=== PATIENT | female | born 1955 | race Caucasian/White ===

== ENCOUNTER 2017-12-03 10:45 | Emergency (ER) | payer OTHER ==
[2017-12-03] MEDS ORDERED: ASPIRIN 81 MG PO STA (10:48)
[2017-12-03] MEDS ORDERED: SODIUM CHLORIDE 0.9% 1,000 ML IV STA (10:48)
--- NOTE | 2017-12-03 10:56 | ED ---
Arrhythmia/Palpitations HPI - General Stated Complaint: Cardiac problems Time Seen by Provider: 12/03/17 10:45 Source: patient, EMS, RN notes reviewed Mode of arrival: EMS - History of Present Illness Initial Comments: This is a 62-year-old female who was brought in by EMS for evaluation for palpitations tachycardia. She states she's been having trouble since being started on hydralazine for her blood pressure. She took some this morning started experiencing tachycardia palpitations feeling tired and weak short of breath some left-sided chest pain. She was noted have blood pressure to tendon 220/90-100 upon arrival after 150 mL of fluids was 166/110. Patient was noted per paramedics be very anxious. MD Complaint: rapid heart beat, palpitations - Related Data Home Medications Medication Instructions Recorded Confirmed Acetaminophen/Diphenhydramine 1 tab PO HS PRN 09/27/15 12/03/17 [Tylenol PM 500-25mg] Aspirin EC [Ecotrin] 81 mg PO DAILY 09/27/15 12/03/17 Losartan [Cozaar] 50 mg PO DAILY 09/27/15 12/03/17 FLUoxetine HCL [PROzac] 10 mg PO DAILY 12/03/17 12/03/17 Levothyroxine Sodium [Synthroid] 50 mcg PO DAILY 12/03/17 12/03/17 hydrALAZINE HCL [Apresoline] 50 mg PO BID 12/03/17 12/03/17 Previous Rx's Medication Instructions Recorded Atenolol 25 mg PO DAILY #14 tablet 12/03/17 Furosemide [Lasix] 20 mg PO DAILY #7 tab 12/03/17 Allergies Allergy/AdvReac Type Severity Reaction Status Date / Time nifedipine Allergy Rapid Verified 12/03/17 11:25 Heart Rate Sulfa (Sulfonamide Allergy Rash/Hives Verified 09/27/15 01:29 Antibiotics) Review of Systems ROS Statement: Those systems with pertinent positive or pertinent negative responses have been documented in the HPI. ROS Other: All systems not noted in ROS Statement are negative. Past Medical History Past Medical History: Chest Pain / Angina, Hyperlipidemia, Hypertension, Thyroid Disorder Additional Past Medical History / Comment(s): Fractured clavicle left History of Any Multi-Drug Resistant Organisms: None Reported Past Surgical History: Tubal Ligation Additional Past Surgical History / Comment(s): HEART ABLATION, Past Psychological History: No Psychological Hx Reported Smoking Status: Current every day smoker Past Alcohol Use History: None Reported Past Drug Use History: None Reported General Exam - General Exam Comments Initial Comments: This is a well-developed well-nourished awake alert anxious appearing female General appearance: alert, in no apparent distress, anxious Head exam: Present: atraumatic, normocephalic, normal inspection Eye exam: Present: normal appearance, PERRL, EOMI, other (Patient was tearful) ENT exam: Present: normal exam, mucous membranes moist Neck exam: Present: normal inspection. Absent: tenderness, meningismus, lymphadenopathy Respiratory exam: Present: normal lung sounds bilaterally, chest wall tenderness (Tennis palpation over left costochondral margin). Absent: respiratory distress, wheezes, rales, rhonchi, stridor Cardiovascular Exam: Present: regular rate, normal rhythm, normal heart sounds. Absent: systolic murmur, diastolic murmur, rubs, gallop, clicks GI/Abdominal exam: Present: soft, normal bowel sounds. Absent: distended, tenderness, guarding, rebound, rigid Extremities exam: Present: normal inspection, full ROM, normal capillary refill. Absent: tenderness, pedal edema, joint swelling, calf tenderness Back exam: Present: normal inspection Neurological exam: Present: alert, oriented X3, CN II-XII intact Psychiatric exam: Present: normal affect, anxious Skin exam: Present: warm, dry, intact, normal color. Absent: rash Course Vital Signs 12/03/17 12/03/17 12/03/17 11:06 11:32 12:58 Temperature 97.8 F Pulse Rate 81 80 84 Respiratory 16 18 18 Rate Blood Pressure 225/119 188/96 160/89 O2 Sat by Pulse 98 98 95 Oximetry EKG Findings - EKG Results: EKG: interpreted by CHRISTA SHIN, sinus rhythm, normal axis, normal QRS, normal ST/ T, no acute changes (EKG shows normal sinus rhythm of 85. We'll 134 QRS duration 82 QT since QTC 392/466 this appears be a normal EKG.) Medical Decision Making - Medical Decision Making I did discuss findings with patient family members patient will be discharged on a dose of atenolol which she's been on before without any difficulty and appears be having problems with the hydralazine. She does have an appointment to follow-up with her doctor next week she is a follow-up with her doctor return when necessary she has are running high potassium lately this is not new for her. - Lab Data Result diagrams: 12/03/17 10:55 12/03/17 10:55 Lab Results 12/03/17 12/03/17 12/03/17 Range/Units 10:55 10:55 10:55 WBC 8.4 (3.8-10.6) k/uL RBC 5.19 (3.80-5.40) m/uL Hgb 16.3 H (11.4-16.0) gm/dL Hct 49.0 H (34.0-46.0) % MCV 94.4 (80.0-100.0) fL MCH 31.4 (25.0-35.0) pg MCHC 33.2 (31.0-37.0) g/dL RDW 12.9 (11.5-15.5) % Plt Count 220 (150-450) k/uL Neutrophils % 69 % Lymphocytes % 21 % Monocytes % 7 % Eosinophils % 1 % Basophils % 1 % Neutrophils # 5.8 (1.3-7.7) k/uL Lymphocytes # 1.7 (1.0-4.8) k/uL Monocytes # 0.6 (0-1.0) k/uL Eosinophils # 0.1 (0-0.7) k/uL Basophils # 0.1 (0-0.2) k/uL PT (9.0-12.0) sec INR (<1.2) APTT (22.0-30.0) sec D-Dimer (<0.60) mg/L FEU Sodium 142 (137-145) mmol/L Potassium 5.8 H (3.5-5.1) mmol/L Chloride 109 H (98-107) mmol/L Carbon Dioxide 20 L (22-30) mmol/L Anion Gap 13 mmol/L BUN 20 H (7-17) mg/dL Creatinine 0.98 (0.52-1.04) mg/dL Est GFR (CKD-EPI)AfAm 72 (>60 ml/min/1.73 sqM) Est GFR (CKD-EPI)NonAf 62 (>60 ml/min/1.73 sqM) Glucose 119 H (74-99) mg/dL Calcium 9.8 (8.4-10.2) mg/dL Magnesium 1.8 (1.6-2.3) mg/dL Total Bilirubin 1.1 (0.2-1.3) mg/dL AST 50 H (14-36) U/L ALT 10 (9-52) U/L Alkaline Phosphatase 100 (38-126) U/L Total Creatine Kinase 182 H (30-135) U/L CK-MB (CK-2) 2.3 (0.0-2.4) ng/mL CK-MB (CK-2) Rel Index 1.3 Troponin I 0.014 (0.000-0.034) ng/mL Total Protein 8.3 H (6.3-8.2) g/dL Albumin 4.7 (3.5-5.0) g/dL Amylase (30-110) U/L Lipase (23-300) U/L TSH 2.700 (0.465-4.680) mIU/L Urine Color Urine Appearance (Clear) Urine pH (5.0-8.0) Ur Specific [place] (1.001-1.035) Urine Protein (Negative) Urine Glucose (UA) (Negative) Urine Ketones (Negative) Urine Blood (Negative) Urine Nitrite (Negative) Urine Bilirubin (Negative) Urine Urobilinogen (<2.0) mg/dL Ur Leukocyte Esterase (Negative) 12/03/17 12/03/17 12/03/17 Range/Units 10:55 10:55 13:02 WBC (3.8-10.6) k/uL RBC (3.80-5.40) m/uL Hgb (11.4-16.0) gm/dL Hct (34.0-46.0) % MCV (80.0-100.0) fL MCH (25.0-35.0) pg MCHC (31.0-37.0) g/dL RDW (11.5-15.5) % Plt Count (150-450) k/uL Neutrophils % % Lymphocytes % % Monocytes % % Eosinophils % % Basophils % % Neutrophils # (1.3-7.7) k/uL Lymphocytes # (1.0-4.8) k/uL Monocytes # (0-1.0) k/uL Eosinophils # (0-0.7) k/uL Basophils # (0-0.2) k/uL PT 9.5 (9.0-12.0) sec INR 0.9 (<1.2) APTT 22.6 (22.0-30.0) sec D-Dimer 0.39 (<0.60) mg/L FEU Sodium (137-145) mmol/L Potassium (3.5-5.1) mmol/L Chloride (98-107) mmol/L Carbon Dioxide (22-30) mmol/L Anion Gap mmol/L BUN (7-17) mg/dL Creatinine (0.52-1.04) mg/dL Est GFR (CKD-EPI)AfAm (>60 ml/min/1.73 sqM) Est GFR (CKD-EPI)NonAf (>60 ml/min/1.73 sqM) Glucose (74-99) mg/dL Calcium (8.4-10.2) mg/dL Magnesium (1.6-2.3) mg/dL Total Bilirubin (0.2-1.3) mg/dL AST (14-36) U/L ALT (9-52) U/L Alkaline Phosphatase (38-126) U/L Total Creatine Kinase (30-135) U/L CK-MB (CK-2) (0.0-2.4) ng/mL CK-MB (CK-2) Rel Index Troponin I (0.000-0.034) ng/mL Total Protein (6.3-8.2) g/dL Albumin (3.5-5.0) g/dL Amylase 147 H (30-110) U/L Lipase 269 (23-300) U/L TSH (0.465-4.680) mIU/L Urine Color Light Yellow Urine Appearance Clear (Clear) Urine pH 6.5 (5.0-8.0) Ur Specific [place] 1.006 (1.001-1.035) Urine Protein Negative (Negative) Urine Glucose (UA) Negative (Negative) Urine Ketones Negative (Negative) Urine Blood Negative (Negative) Urine Nitrite Negative (Negative) Urine Bilirubin Negative (Negative) Urine Urobilinogen <2.0 (<2.0) mg/dL Ur Leukocyte Esterase Negative (Negative) - Radiology Data Radiology results: report reviewed (I did review the imaging and report no acute findings.), image reviewed Disposition Clinical Impression: Hypertension, Chest wall syndrome, Hyperkalemia Disposition: HOME SELF-CARE Condition: Good Instructions: Costochondritis (ED), Hypertension (ED) Additional Instructions: Stop the hydralazine Prescriptions: Atenolol 25 mg PO DAILY #14 tablet Furosemide [Lasix] 20 mg PO DAILY #7 tab Is patient prescribed a controlled substance at d/c from ED?: No Referrals: Lanette Rankin DO [Primary Care Provider] - 1-2 days
[2017-12-03 11:11] VITALS: TEMP 97.8
[2017-12-03 11:33] VITALS: RESP 18
--- NOTE | 2017-12-03 11:52 | XR ---
EXAMINATION TYPE: XR chest 2V DATE OF EXAM: 12/03/2017 COMPARISON: 09/27/2015 INDICATION: Dysrhythmia TECHNIQUE: Frontal and lateral views of the chest are obtained. FINDINGS: The heart size is normal. The pulmonary vasculature is normal. The lungs are clear. IMPRESSION: 1. No acute pulmonary process.
[2017-12-03 12:10] LABS: Basophils # (A) 0.1 k/uL (0-0.2); Basophils % (A) 1 %; Eosinophils # (A) 0.1 k/uL (0-0.7); Eosinophils % (A) 1 %; HGB 16.3 gm/dL (11.4-16.0); Lymphocytes # (A) 1.7 k/uL (1.0-4.8); Lymphocytes % (A) 21 %; MCH 31.4 pg (25.0-35.0); MCHC 33.2 g/dL (31.0-37.0); MCV 94.4 fL (80.0-100.0); Mean Platelet Volume 7.9; Monocytes # (A) 0.6 k/uL (0-1.0); Monocytes % (A) 7 %; Neutrophils # (A) 5.8 k/uL (1.3-7.7); Neutrophils % (A) 69 %; Platelet Count 220 k/uL (150-450); RBC 5.19 m/uL (3.80-5.40); RDW 12.9 % (11.5-15.5); WBC 8.4 k/uL (3.8-10.6)
[2017-12-03 12:23] LABS: Albumin 4.7 g/dL (3.5-5.0); Calcium 9.8 mg/dL (8.4-10.2); Magnesium 1.8 mg/dL (1.6-2.3); Total Bilirubin 1.1 mg/dL (0.2-1.3); Total Protein 8.3 g/dL (6.3-8.2)
[2017-12-03 12:26] LABS: Potassium 5.8 mmol/L (3.5-5.1)
[2017-12-03 12:32] LABS: D-Dimer 0.39 mg/L FEU (<0.60); INR 0.9 (<1.2); Partial Thromboplastin Time 22.6 sec (22.0-30.0); Prothrombin Time 9.5 sec (9.0-12.0)
[2017-12-03 12:59] VITALS: BP 160/89; PULSE 84
[2017-12-03 13:02] LABS: Creatine Kinase MB 2.3 ng/mL (0.0-2.4)
[2017-12-03 13:03] LABS: Troponin I 0.014 ng/mL (0.000-0.034)
[2017-12-03 13:10] LABS: Appearance,Urine Clear (Clear); Bilirubin,Urine Negative (Negative); Blood,Urine Negative (Negative); Color,Urine Light Yellow; Glucose,Urine (UA) Negative (Negative); Ketones,Urine Negative (Negative); Leukocyte Esterase,Urine Negative (Negative); Nitrite,Urine Negative (Negative); PH, Urine 6.5 (5.0-8.0); Protein,Urine Negative (Negative); Specific Gravity,Urine 1.006 (1.001-1.035); Urobilinogen,Urine <2.0 mg/dL (<2.0)
[2017-12-03 13:13] LABS: Amylase 147 U/L (30-110); Lipase 269 U/L (23-300)
== END 2017-12-03 15:06 | disposition home or self-care (01) ==
LOC: EC 10:45
DX: E87.5 Hyperkalemia (principal); I10 Essential (primary) hypertension; Z53.20 Procedure and treatment not carried out because of patient's decision for unspecified reasons; E07.9 Disorder of thyroid, unspecified; F17.200 Nicotine dependence, unspecified, uncomplicated; Z88.2 Allergy status to sulfonamides; Z88.8 Allergy status to other drugs, medicaments and biological substances; Z79.82 Long term (current) use of aspirin; Z79.899 Other long term (current) drug therapy; Z98.890 Other specified postprocedural states
CPT/HCPCS: 36415; 71046; 80053; 81003; 82150; 82550; 82553; 83690; 83735; 84443; 84484; 85025; 85379; 85610; 85730; 93005; 99285

== ENCOUNTER 2019-03-25 18:54 | Emergency (ER) | payer OTHER ==
[2019-03-25 19:10] VITALS: BP 217/99; PULSE 75; RESP 18; TEMP 97.9
[2019-03-25 19:38] LABS: Basophils # (A) 0.1 k/uL (0-0.2); Basophils % (A) 1 %; Eosinophils # (A) 0.1 k/uL (0-0.7); Eosinophils % (A) 1 %; HGB 16.6 gm/dL (11.4-16.0); Lymphocytes % (A) 18 %; MCH 31.6 pg (25.0-35.0); MCHC 33.2 g/dL (31.0-37.0); MCV 95.1 fL (80.0-100.0); Mean Platelet Volume 7.9; Monocytes # (A) 0.7 k/uL (0-1.0); Monocytes % (A) 6 %; Neutrophils # (A) 8.5 k/uL (1.3-7.7); Neutrophils % (A) 73 %; Platelet Count 251 k/uL (150-450); RBC 5.26 m/uL (3.80-5.40); RDW 12.6 % (11.5-15.5); WBC 11.5 k/uL (3.8-10.6)
[2019-03-25 19:50] LABS: ALT 15 U/L (4-34); AST 27 U/L (14-36); African American GFR (CKD) >90 (>60 ml/min/1.73 sqM); Albumin 4.8 g/dL (3.5-5.0); Alkaline Phosphatase 126 U/L (38-126); Anion Gap 11 mmol/L; Blood Urea Nitrogen 16 mg/dL (7-17); Carbon Dioxide 24 mmol/L (22-30); Chloride 109 mmol/L (98-107); Glucose 107 mg/dL (74-99); Non-African American GFR(CKD) 82 (>60 ml/min/1.73 sqM); Sodium 144 mmol/L (137-145); Total Bilirubin 0.6 mg/dL (0.2-1.3); Total Protein 8.2 g/dL (6.3-8.2)
[2019-03-25 19:55] LABS: INR 0.9 (<1.2)
[2019-03-25 19:56] LABS: D-Dimer 0.37 mg/L FEU (<0.60); Partial Thromboplastin Time 25.8 sec (22.0-30.0); Prothrombin Time 9.4 sec (9.0-12.0)
--- NOTE | 2019-03-25 20:11 | XR ---
EXAMINATION TYPE: XR chest 2V DATE OF EXAM: 03/25/2019 COMPARISON: 12/03/2017 HISTORY: Chest pain TECHNIQUE: 2 views FINDINGS: Heart and mediastinum are normal. Lungs are clear. Diaphragm is normal. Bony thorax appears normal. IMPRESSION: Normal chest. No change.
--- NOTE | 2019-03-25 20:24 | ED ---
General Adult HPI - General Chief complaint: Chest Pain Stated complaint: Coughing blood Time Seen by Provider: 03/25/19 19:13 Source: patient Mode of arrival: ambulatory Limitations: no limitations - History of Present Illness Initial comments: 64-year-old female patient presents to the emergency department today for evaluation of hemoptysis and cough. Patient's that she's been coughing for the last month. Patient states that last evening she started to cough up blood in her sputum. States it has been red and streaking. She states she has been s hort of breath but denies any chest pain. Denies any use of anticoagulants or antiplatelet medications. Denies any abdominal pain, nausea, or vomiting. Denies any dizziness or weakness. States she has been chilled but denies fever. Patient denies any recent rash, diarrhea, constipation, back pain, numbness, tingling, dizziness, weakness, hematuria, dysuria, urinary urgency, urinary frequency, headache, visual changes, or any other complaints. - Related Data Home Medications Medication Instructions Recorded Confirmed Acetaminophen/Diphenhydramine 1 tab PO HS PRN 09/27/15 12/03/17 [Tylenol PM 500-25mg] Aspirin EC [Ecotrin] 81 mg PO DAILY 09/27/15 12/03/17 Losartan [Cozaar] 50 mg PO DAILY 09/27/15 12/03/17 FLUoxetine HCL [PROzac] 10 mg PO DAILY 12/03/17 12/03/17 Levothyroxine Sodium [Synthroid] 50 mcg PO DAILY 12/03/17 12/03/17 hydrALAZINE HCL [Apresoline] 50 mg PO BID 12/03/17 12/03/17 Previous Rx's Medication Instructions Recorded Atenolol 25 mg PO DAILY #14 tablet 12/03/17 Furosemide [Lasix] 20 mg PO DAILY #7 tab 12/03/17 Azithromycin [Zithromax] 250 mg PO DAILY #25 ml 03/25/19 prednisoLONE [prednisoLONE Oral 25 mg PO BID #67 ml 03/25/19 Soln] Allergies Allergy/AdvReac Type Severity Reaction Status Date / Time nifedipine Allergy Rapid Verified 03/25/19 19:04 Heart Rate Sulfa (Sulfonamide Allergy Rash/Hives Verified 03/25/19 19:04 Antibiotics) Review of Systems ROS Statement: Those systems with pertinent positive or pertinent negative responses have been documented in the HPI. ROS Other: All systems not noted in ROS Statement are negative. Past Medical History Past Medical History: Chest Pain / Angina, Hyperlipidemia, Hypertension, Thyroid Disorder Additional Past Medical History / Comment(s): Fractured clavicle left History of Any Multi-Drug Resistant Organisms: None Reported Past Surgical History: Tubal Ligation Additional Past Surgical History / Comment(s): HEART ABLATION, Past Psychological History: Depression Smoking Status: Current every day smoker Past Alcohol Use History: None Reported Past Drug Use History: Marijuana General Exam Limitations: no limitations General appearance: alert, in no apparent distress, other (This is a well- developed, well-nourished adult female patient in no acute distress. Vital signs upon presentation are temperature 97.9F, pulse 75, respirations 18, blood pressure 217/99, pulse ox 96% on room air.) Respiratory exam: Present: normal lung sounds bilaterally. Absent: respiratory distress, wheezes, rales, rhonchi, stridor Cardiovascular Exam: Present: regular rate, normal rhythm, normal heart sounds. Absent: systolic murmur, diastolic murmur, rubs, gallop, clicks GI/Abdominal exam: Present: soft, normal bowel sounds. Absent: distended, tenderness, guarding, rebound, rigid Neurological exam: Present: alert, oriented X3, CN II-XII intact Psychiatric exam: Present: normal affect, normal mood Skin exam: Present: warm, dry, intact, normal color. Absent: rash Course Vital Signs 03/25/19 03/25/19 19:04 19:22 Temperature 97.9 F Pulse Rate 75 Respiratory 18 18 Rate Blood Pressure 217/99 O2 Sat by Pulse 96 Oximetry EKG Findings - EKG Comments: EKG Findings:: EKG obtained in 1947 shows normal sinus rhythm with a ventricular rate of 69, MN interval 138, QR mu-ism 82, QTc 416, QTC 445. No evidence of ST elevation or depression. Medical Decision Making - Medical Decision Making 64-year-old female patient presents to the emergency department today for evaluation of hemoptysis. Physical examination did reveal clear equal lung sounds. Was able to visualize the sputum production and was streaked with light pink blood. Oxygen saturations are satisfactory. Chest x-ray shows no acute cardio pulmonary process. Labs reviewed and are unremarkable. D-dimer is negative. I did discuss findings and results with the patient. Patient symptoms are most consistent with acute bronchitis. She'll be discharged with steroid, azithromycin, and instructed to use Mucinex DM [id number]. She is instructed to follow-up with Return parameters were discussed in detail. She verbalizes understanding and agrees with this plan - Lab Data Result diagrams: 03/25/19 19:30 03/25/19 19:30 Lab Results 03/25/19 03/25/19 03/25/19 Range/Units 19:30 19:30 19:30 WBC 11.5 H (3.8-10.6) k/uL RBC 5.26 (3.80-5.40) m/uL Hgb 16.6 H (11.4-16.0) gm/dL Hct 50.0 H (34.0-46.0) % MCV 95.1 (80.0-100.0) fL MCH 31.6 (25.0-35.0) pg MCHC 33.2 (31.0-37.0) g/dL RDW 12.6 (11.5-15.5) % Plt Count 251 (150-450) k/uL Neutrophils % 73 % Lymphocytes % 18 % Monocytes % 6 % Eosinophils % 1 % Basophils % 1 % Neutrophils # 8.5 H (1.3-7.7) k/uL Lymphocytes # 2.0 (1.0-4.8) k/uL Monocytes # 0.7 (0-1.0) k/uL Eosinophils # 0.1 (0-0.7) k/uL Basophils # 0.1 (0-0.2) k/uL PT 9.4 (9.0-12.0) sec INR 0.9 (<1.2) APTT 25.8 (22.0-30.0) sec D-Dimer 0.37 (<0.60) mg/L FEU Sodium 144 (137-145) mmol/L Potassium 4.0 (3.5-5.1) mmol/L Chloride 109 H (98-107) mmol/L Carbon Dioxide 24 (22-30) mmol/L Anion Gap 11 mmol/L BUN 16 (7-17) mg/dL Creatinine 0.78 (0.52-1.04) mg/dL Est GFR (CKD-EPI)AfAm >90 (>60 ml/min/1.73 sqM) Est GFR (CKD-EPI)NonAf 82 (>60 ml/min/1.73 sqM) Glucose 107 H (74-99) mg/dL Calcium 10.0 (8.4-10.2) mg/dL Total Bilirubin 0.6 (0.2-1.3) mg/dL AST 27 (14-36) U/L ALT 15 (4-34) U/L Alkaline Phosphatase 126 (38-126) U/L Troponin I (0.000-0.034) ng/mL Total Protein 8.2 (6.3-8.2) g/dL Albumin 4.8 (3.5-5.0) g/dL 03/25/19 Range/Units 19:30 WBC (3.8-10.6) k/uL RBC (3.80-5.40) m/uL Hgb (11.4-16.0) gm/dL Hct (34.0-46.0) % MCV (80.0-100.0) fL MCH (25.0-35.0) pg MCHC (31.0-37.0) g/dL RDW (11.5-15.5) % Plt Count (150-450) k/uL Neutrophils % % Lymphocytes % % Monocytes % % Eosinophils % % Basophils % % Neutrophils # (1.3-7.7) k/uL Lymphocytes # (1.0-4.8) k/uL Monocytes # (0-1.0) k/uL Eosinophils # (0-0.7) k/uL Basophils # (0-0.2) k/uL PT (9.0-12.0) sec INR (<1.2) APTT (22.0-30.0) sec D-Dimer (<0.60) mg/L FEU Sodium (137-145) mmol/L Potassium (3.5-5.1) mmol/L Chloride (98-107) mmol/L Carbon Dioxide (22-30) mmol/L Anion Gap mmol/L BUN (7-17) mg/dL Creatinine (0.52-1.04) mg/dL Est GFR (CKD-EPI)AfAm (>60 ml/min/1.73 sqM) Est GFR (CKD-EPI)NonAf (>60 ml/min/1.73 sqM) Glucose (74-99) mg/dL Calcium (8.4-10.2) mg/dL Total Bilirubin (0.2-1.3) mg/dL AST (14-36) U/L ALT (4-34) U/L Alkaline Phosphatase (38-126) U/L Troponin I <0.012 (0.000-0.034) ng/mL Total Protein (6.3-8.2) g/dL Albumin (3.5-5.0) g/dL - Radiology Data Radiology results: report reviewed, image reviewed Two-view x-ray of the chest is obtained. Report was reviewed in its entirety. Impression by Dr. Loyola shows normal chest. No change. Disposition Clinical Impression: Acute bronchitis, Hemoptysis Disposition: HOME SELF-CARE Condition: Good Instructions (If sedation given, give patient instructions): Acute Bronchitis (ED), Hemoptysis (ED) Additional Instructions: Continue all medications in full. Follow-up through primary care physician for recheck in 1-2 days. Return to the emergency department immediately for any new, worsening, or concerning symptoms. Prescriptions: prednisoLONE [prednisoLONE Oral Soln] 25 mg PO BID #67 ml Azithromycin [Zithromax] 250 mg PO DAILY #25 ml Is patient prescribed a controlled substance at d/c from ED?: No Referrals: [facility],Clinic [Primary Care Provider] - 1-2 days Time of Disposition: 20:37
[2019-03-25] MEDS ORDERED: AZITHROMYCIN 1,200 MG/30 ML BOTTLE PO STA (20:31)
[2019-03-25] MEDS ORDERED: methylPREDNISolone SOD SUCCI 125 MG/2 ML VIAL IV STA (20:32)
== END 2019-03-25 21:30 | disposition home or self-care (01) ==
LOC: EC 18:54
DX: J20.9 Acute bronchitis, unspecified (principal); I20.9 Angina pectoris, unspecified; I10 Essential (primary) hypertension; E07.9 Disorder of thyroid, unspecified; F32.9 Major depressive disorder, single episode, unspecified; F17.200 Nicotine dependence, unspecified, uncomplicated; Z88.2 Allergy status to sulfonamides; Z88.8 Allergy status to other drugs, medicaments and biological substances; Z79.82 Long term (current) use of aspirin; Z79.890 Hormone replacement therapy; Z79.899 Other long term (current) drug therapy
CPT/HCPCS: 36415; 93005; 85379; 80053; 84484; 85025; 85610; 85730; 71046; 99285; 96374; J2930

== ENCOUNTER 2019-08-04 16:57 | Emergency (ER) | payer OTHER ==
[2019-08-04 18:03] VITALS: TEMP 98.4
--- NOTE | 2019-08-04 19:31 | XR ---
EXAMINATION TYPE: XR chest 2V DATE OF EXAM: 08/04/2019 COMPARISON: Prior chest x-ray March 25, 2019. HISTORY: Weakness. TECHNIQUE: Frontal and lateral views of the chest are obtained. FINDINGS: There is chronic parenchymal change without suspicious focal air space opacity, pleural ef fusion, or pneumothorax seen. The cardiac silhouette size is stable and upper limits of normal. Th e osseous structures are intact. IMPRESSION: Chronic changes without acute pulmonary process. No significant change from prior.
--- NOTE | 2019-08-04 19:32 | XR ---
EXAMINATION TYPE: XR Hip RT and AP Pelvis DATE OF EXAM: 08/04/2019 COMPARISON: NONE HISTORY: Pelvic and right hip pain after injury. TECHNIQUE: A single AP view of the pelvis is obtained. Two views of the right hip are obtained. FINDINGS: Osseous structures are somewhat demineralized. There is no acute fracture/dislocation evid ent in the pelvis. The and sacroiliac joints appear symmetric and unremarkable. Mild to moderate axi al joint space loss and moderate acetabular spurring in both hips. Pubic symphysis is intact. The ove rlying soft tissue appears unremarkable. Two views of right hip show no acute fracture or dislocation. No focal lytic or sclerotic lesion see n in the proximal right femur. The overlying soft tissue is unremarkable. IMPRESSION: There is no acute fracture or dislocation in the pelvis or right hip.
[2019-08-04 19:35] LABS: Appearance,Urine Clear (Clear); Bilirubin,Urine Negative (Negative); Blood,Urine Negative (Negative); Color,Urine Colorless; Glucose,Urine (UA) Negative (Negative); Ketones,Urine Negative (Negative); Leukocyte Esterase,Urine Negative (Negative); Nitrite,Urine Negative (Negative); Protein,Urine Negative (Negative); Specific Gravity,Urine 1.002 (1.001-1.035); Urobilinogen,Urine <2.0 mg/dL (<2.0)
[2019-08-04 19:36] LABS: Basophils # (A) 0.1 k/uL (0-0.2); Basophils % (A) 1 %; Eosinophils # (A) 0.2 k/uL (0-0.7); Eosinophils % (A) 1 %; HCT 49.5 % (34.0-46.0); HGB 16.6 gm/dL (11.4-16.0); Lymphocytes # (A) 2.8 k/uL (1.0-4.8); Lymphocytes % (A) 21 %; MCH 32.3 pg (25.0-35.0); MCHC 33.4 g/dL (31.0-37.0); MCV 96.6 fL (80.0-100.0); Mean Platelet Volume 7.6; Monocytes # (A) 0.8 k/uL (0-1.0); Monocytes % (A) 6 %; Neutrophils # (A) 9.3 k/uL (1.3-7.7); Neutrophils % (A) 70 %; Platelet Count 191 k/uL (150-450); RBC 5.13 m/uL (3.80-5.40); RDW 12.8 % (11.5-15.5); WBC 13.3 k/uL (3.8-10.6)
[2019-08-04 19:44] LABS: INR 0.9 (<1.2); Partial Thromboplastin Time 25.2 sec (22.0-30.0); Prothrombin Time 9.5 sec (9.0-12.0)
[2019-08-04 19:46] LABS: Albumin 4.4 g/dL (3.5-5.0); Calcium 9.8 mg/dL (8.4-10.2); Potassium 4.5 mmol/L (3.5-5.1); Total Bilirubin 0.4 mg/dL (0.2-1.3); Total Protein 7.6 g/dL (6.3-8.2)
[2019-08-04] MEDS ORDERED: KETOROLAC 30 MG/ML 1 ML VIAL IVP STA (20:19)
--- NOTE | 2019-08-04 20:19 | ED ---
General Adult HPI - General Chief complaint: Recheck/Abnormal Lab/Rx Stated complaint: Hypertensive Time Seen by Provider: 08/04/19 18:00 Source: patient Mode of arrival: wheelchair Limitations: no limitations - History of Present Illness Initial comments: The patient is a 64 year old female with past history of hypertension, A. fib who presents emergency room and reported hypotension. Patient states that she had a total visit with her primary care physician today in regards to right hip pain. States that she previously injured it several years ago. Does have chronic pain in the right hip. Last week was gardening and reinjured herself after turning quickly. Denies any falls or blunt trauma to the area. She's been taking Tylenol for pain control. Saw her primary care today who had her take her blood pressure. He was noted to be high. She recommended that she come to the emergency room for further evaluation. Patient states she's been on the same blood pressure medications including atenolol and losartan for the past several years. Denies missing any doses. She normally does not take her blood pressure daily. She denies any headaches or visual changes. No chest pain or shortness of breath. Denies any fevers or chills. There are no alleviating, precipitating factors - Related Data Home Medications Medication Instructions Recorded Confirmed Acetaminophen/Diphenhydramine 1 tab PO HS PRN 09/27/15 12/03/17 [Tylenol PM 500-25mg] Aspirin EC [Ecotrin] 81 mg PO DAILY 09/27/15 12/03/17 Losartan [Cozaar] 50 mg PO DAILY 09/27/15 12/03/17 FLUoxetine HCL [PROzac] 10 mg PO DAILY 12/03/17 12/03/17 Levothyroxine Sodium [Synthroid] 50 mcg PO DAILY 12/03/17 12/03/17 hydrALAZINE HCL [Apresoline] 50 mg PO BID 12/03/17 12/03/17 Previous Rx's Medication Instructions Recorded Atenolol 25 mg PO DAILY #14 tablet 12/03/17 Furosemide [Lasix] 20 mg PO DAILY #7 tab 12/03/17 Azithromycin [Zithromax] 250 mg PO DAILY #25 ml 03/25/19 prednisoLONE [prednisoLONE Oral 25 mg PO BID #67 ml 03/25/19 Soln] Allergies Allergy/AdvReac Type Severity Reaction Status Date / Time nifedipine Allergy Rapid Verified 08/04/19 18:03 Heart Rate Sulfa (Sulfonamide Allergy Rash/Hives Verified 08/04/19 18:03 Antibiotics) Review of Systems ROS Statement: Those systems with pertinent positive or pertinent negative responses have been documented in the HPI. ROS Other: All systems not noted in ROS Statement are negative. Past Medical History Past Medical History: Atrial Fibrillation, Chest Pain / Angina, Hyperlipidemia, Hypertension, Thyroid Disorder Additional Past Medical History / Comment(s): Fractured clavicle left History of Any Multi-Drug Resistant Organisms: None Reported Past Surgical History: Tubal Ligation Additional Past Surgical History / Comment(s): HEART ABLATION, cyst from throat Past Psychological History: Depression Smoking Status: Current every day smoker Past Alcohol Use History: None Reported Past Drug Use History: Marijuana General Exam Limitations: no limitations Course Vital Signs 08/04/19 08/04/19 08/04/19 18:00 18:50 19:03 Temperature 98.4 F Pulse Rate 57 L 62 Pulse Rate [ 65 [place] ] Respiratory 18 16 Rate Blood Pressure 222/85 198/108 O2 Sat by Pulse 97 98 Oximetry 08/04/19 21:15 Temperature Pulse Rate 61 Pulse Rate [ [place] ] Respiratory 18 Rate Blood Pressure 202/105 O2 Sat by Pulse 96 Oximetry EKG Findings - EKG Comments: EKG Findings:: EKG demonstrates a sinus rhythm with ventricular rate of 62. MN interval 144. QRS 86. QTC 450. No acute ST segment elevations or depressions concerning for ischemic changes Medical Decision Making - Medical Decision Making Upon arrival the patient is placed into room 8. A thorough history and physical exam is performed. Patient's blood pressure is elevated. She is offered something for pain control however initially refused. Laboratory studies are conducted. Patient sent for an x-ray of her chest, right hip and pelvis. Laboratory studies is fairly unremarkable. Urinalysis negative. Chest x-ray demonstrates chronic changes without acute crit pulmonary process. X-ray demonstrates no acute fracture dislocation in the pelvis or right hip. Patient is agreeable to something for pain control therefore to give her 15 mg of Toradol. Patient is ambulatory without difficulty. At this time patient will b e discharged home. She is given a dose of hydralazine emergency department for acute blood pressure control. She is instructed to call her primary care physician tomorrow in order to discuss medication changes. She has any new or worsening symptoms return to the emergency room. Patient was discharged home in stable condition - Lab Data Result diagrams: 08/04/19 19:10 08/04/19 19:10 Lab Results 08/04/19 08/04/19 08/04/19 Range/Units 19:10 19:10 19:10 WBC 13.3 H (3.8-10.6) k/uL RBC 5.13 (3.80-5.40) m/uL Hgb 16.6 H (11.4-16.0) gm/dL Hct 49.5 H (34.0-46.0) % MCV 96.6 (80.0-100.0) fL MCH 32.3 (25.0-35.0) pg MCHC 33.4 (31.0-37.0) g/dL RDW 12.8 (11.5-15.5) % Plt Count 191 (150-450) k/uL Neutrophils % 70 % Lymphocytes % 21 % Monocytes % 6 % Eosinophils % 1 % Basophils % 1 % Neutrophils # 9.3 H (1.3-7.7) k/uL Lymphocytes # 2.8 (1.0-4.8) k/uL Monocytes # 0.8 (0-1.0) k/uL Eosinophils # 0.2 (0-0.7) k/uL Basophils # 0.1 (0-0.2) k/uL PT 9.5 (9.0-12.0) sec INR 0.9 (<1.2) APTT 25.2 (22.0-30.0) sec Sodium (137-145) mmol/L Potassium (3.5-5.1) mmol/L Chloride (98-107) mmol/L Carbon Dioxide (22-30) mmol/L Anion Gap mmol/L BUN (7-17) mg/dL Creatinine (0.52-1.04) mg/dL Est GFR (CKD-EPI)AfAm (>60 ml/min/1.73 sqM) Est GFR (CKD-EPI)NonAf (>60 ml/min/1.73 sqM) Glucose (74-99) mg/dL Calcium (8.4-10.2) mg/dL Total Bilirubin (0.2-1.3) mg/dL AST (14-36) U/L ALT (4-34) U/L Alkaline Phosphatase (38-126) U/L Creatine Kinase (30-135) U/L Troponin I (0.000-0.034) ng/mL Total Protein (6.3-8.2) g/dL Albumin (3.5-5.0) g/dL TSH (0.465-4.680) mIU/L Urine Color Colorless Urine Appearance Clear (Clear) Urine pH 6.0 (5.0-8.0) Ur Specific [place] 1.002 (1.001-1.035) Urine Protein Negative (Negative) Urine Glucose (UA) Negative (Negative) Urine Ketones Negative (Negative) Urine Blood Negative (Negative) Urine Nitrite Negative (Negative) Urine Bilirubin Negative (Negative) Urine Urobilinogen <2.0 (<2.0) mg/dL Ur Leukocyte Esterase Negative (Negative) 08/04/19 08/04/19 Range/Units 19:10 19:10 WBC (3.8-10.6) k/uL RBC (3.80-5.40) m/uL Hgb (11.4-16.0) gm/dL Hct (34.0-46.0) % MCV (80.0-100.0) fL MCH (25.0-35.0) pg MCHC (31.0-37.0) g/dL RDW (11.5-15.5) % Plt Count (150-450) k/uL Neutrophils % % Lymphocytes % % Monocytes % % Eosinophils % % Basophils % % Neutrophils # (1.3-7.7) k/uL Lymphocytes # (1.0-4.8) k/uL Monocytes # (0-1.0) k/uL Eosinophils # (0-0.7) k/uL Basophils # (0-0.2) k/uL PT (9.0-12.0) sec INR (<1.2) APTT (22.0-30.0) sec Sodium 140 (137-145) mmol/L Potassium 4.5 (3.5-5.1) mmol/L Chloride 108 H (98-107) mmol/L Carbon Dioxide 25 (22-30) mmol/L Anion Gap 7 mmol/L BUN 16 (7-17) mg/dL Creatinine 0.94 (0.52-1.04) mg/dL Est GFR (CKD-EPI)AfAm 75 (>60 ml/min/1.73 sqM) Est GFR (CKD-EPI)NonAf 65 (>60 ml/min/1.73 sqM) Glucose 89 (74-99) mg/dL Calcium 9.8 (8.4-10.2) mg/dL Total Bilirubin 0.4 (0.2-1.3) mg/dL AST 26 (14-36) U/L ALT 15 (4-34) U/L Alkaline Phosphatase 118 (38-126) U/L Creatine Kinase 138 H (30-135) U/L Troponin I <0.012 (0.000-0.034) ng/mL Total Protein 7.6 (6.3-8.2) g/dL Albumin 4.4 (3.5-5.0) g/dL TSH 5.440 H (0.465-4.680) mIU/L Urine Color Urine Appearance (Clear) Urine pH (5.0-8.0) Ur Specific [place] (1.001-1.035) Urine Protein (Negative) Urine Glucose (UA) (Negative) Urine Ketones (Negative) Urine Blood (Negative) Urine Nitrite (Negative) Urine Bilirubin (Negative) Urine Urobilinogen (<2.0) mg/dL Ur Leukocyte Esterase (Negative) Disposition Clinical Impression: Hypertension, Right hip pain Disposition: HOME SELF-CARE Condition: Stable Instructions (If sedation given, give patient instructions): Hypertension (ED) Additional Instructions: Please follow-up with primary care doctor within 2-4 days. Call in the morning to make arrangements in regards to changing her blood pressure medications. Return to the emergency room for any new or worsening symptoms Is patient prescribed a controlled substance at d/c from ED?: No Referrals: [facility],Clinic [Primary Care Provider] - 1-2 days Time of Disposition: 20:51
[2019-08-04] MEDS ORDERED: hydrALAZINE HCL 20 MG/ML 1 ML VIAL IVP STA (20:46)
[2019-08-04 21:17] VITALS: BP 202/105; PULSE 61; RESP 18
== END 2019-08-04 21:17 | disposition home or self-care (01) ==
LOC: EC 16:57
DX: I10 Essential (primary) hypertension (principal); M25.551 Pain in right hip; F32.9 Major depressive disorder, single episode, unspecified; E07.9 Disorder of thyroid, unspecified; I48.91 Unspecified atrial fibrillation; F17.200 Nicotine dependence, unspecified, uncomplicated; Z79.890 Hormone replacement therapy; Z79.899 Other long term (current) drug therapy; Z88.2 Allergy status to sulfonamides; Z88.8 Allergy status to other drugs, medicaments and biological substances; Z98.890 Other specified postprocedural states
CPT/HCPCS: 99284; 96374; 96375; 36415; 93005; 80053; 82550; 84443; 84484; 85025; 85610; 85730; 81003; 73502; 71046; J0360; J1885